=== PATIENT | male | born 1980 ===

== ENCOUNTER 2018-07-18 19:58 | Emergency (ER) | payer SELFPAY ==
[2018-07-18 20:12] VITALS: TEMP 98.8; BMI 18.3
[2018-07-18] MEDS ORDERED: Naproxen 550 mg Tab PO STA (20:50)
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
[2018-07-18 23:39] VITALS: RESP 16
[2018-07-19 00:57] VITALS: BP 127/74; PULSE 62; O2SAT 99
--- NOTE | 2018-07-19 09:55 | CT ---
Date of service: 07/18/2018 PROCEDURE: CT of the left wrist HISTORY: wrist fracture COMPARISON: TECHNIQUE: Radiation dose: Total exam DLP = 220 mGy-cm. This CT exam was performed using one or more of the following dose reduction techniques: Automated exposure control, adjustment of the mA and/or kV according to patient size, and/or use of iterative reconstruction technique. FINDINGS: There is a comminuted displaced intra-articular fracture of the distal radius. There also a displaced fracture through the base of the ulnar styloid. The carpal bones are intact. IMPRESSION: As above
--- NOTE | 2018-07-19 10:37 | RAD ---
PROCEDURE: Left Hand Radiographs. HISTORY: pain COMPARISON: None. TECHNIQUE: 3 views obtained. FINDINGS: BONES: Normal. No fracture. JOINTS: Normal. No osteoarthritic changes. SOFT TISSUES: Normal. OTHER FINDINGS: None. IMPRESSION: Comminuted fracture of the distal radius and fracture of the ulnar styloid. The hand is otherwise unremarkable
--- NOTE | 2018-07-19 10:38 | RAD ---
Date of service: 07/18/2018 PROCEDURE: Left Wrist Radiographs. HISTORY: pain COMPARISON: None. TECHNIQUE: 4 views obtained. FINDINGS: BONES: There is a comminuted displaced intra-articular fracture of the distal radius. There is a fracture through the base of the ulnar styloid. The carpal bones are intact JOINTS: Normal. No dislocation. SOFT TISSUES: Normal. OTHER FINDINGS: None. IMPRESSION: There is a comminuted displaced intra-articular fracture of the distal radius. There is a fracture through the base of the ulnar styloid. The carpal bones are intact
== END 2018-07-19 00:55 | disposition home or self-care (01) ==
LOC: ED 19:58
DX: S52.502A Unspecified fracture of the lower end of left radius, initial encounter for closed fracture (principal); V00.131A Fall from skateboard, initial encounter; Y93.51 Activity, roller skating (inline) and skateboarding

== ENCOUNTER 2018-08-10 13:37 | Day surgery (SDC) | payer OTHER ==
[2018-08-10] MEDS ORDERED: Bupivacaine 0.5% 50 ML IJ ONE (15:33)
[2018-08-10] MEDS ORDERED: Propofol 10 mg/ml Inj (20 ML) ONE (15:39)
[2018-08-10] MEDS ORDERED: Midazolam 2 MG/2 ML VIAL ONE (15:47)
[2018-08-10] MEDS ORDERED: Lidocaine 1% Inj (20ml) ONE (16:17)
[2018-08-10] MEDS ORDERED: Morphine 4 mg/ml ISec ONE (17:07)
--- NOTE | 2018-08-10 17:08 | PCM.SURG1 ---
Surgeon's Initial Post Op Note - Surgeon's Notes Surgeon: tello [employer] Specialist: sharyn Type of Anesthesia: General Endo Pre-Operative Diagnosis: distal radius fx Operative Findings: see dic Post-Operative Diagnosis: same Operation Performed: ORIF distal radius Specimen/Specimens Removed: none Estimated Blood Loss: EBL {In ML}: 0 Date of Surgery/Procedure: 08/10/18 Time of Surgery/Procedure: 17:00
[2018-08-10] MEDS ORDERED: HYDROmorphone 0.5 mg/0.5 ml ISec IVP PRN (17:29)
[2018-08-10] MEDS ORDERED: Lactated Ringer's 1,000 ML IV SCH (17:30)
[2018-08-10] MEDS ORDERED: Bupivacaine/Epi 0.25%-1:200,000 10 ml PF inj IJ ONE (17:35)
--- NOTE | 2018-08-10 17:50 | PCM.ANESB1 ---
Interscalene Block - Brachial Plexus Date of Procedure: 08/10/18 Anesthesiologist: Yoana Pre-Procedure Diagnosis: ORIF Left wrist Post-Procedure Diagnosis: ORIF Left wrist Procedure Performed: Interscalene Block of Brachial Plexus Left - Procedure Interscalene Block of Brachial Plexus: This procedure was explained to the patient that it is for post-operative pain management. Consent was obtained after a thorough discussion with the patient regarding the benefits and possible complications of local anesthetic block of the Brachial Plexus at the Interscalene area. The patient was brought to the Operating Room and standard monitors were applied. Time out was held with the circulating nurse to confirm the correct surgery and appropriate block. After applying Oxygen by nasal cannula and administering IV Sedation, the patient's head was gently rotated away from the operative shoulder and the anterior scalene groove was carefully palpated. The ultrasound transducer was then applied to the skin in the transverse plane and the brachial plexus was visualized lateral to the carotid artery and in between the anterior and middle scalene muscles. After identification,the anterior lateral portion of the neck was prepped with Betadine solution three times and Lidocaine 1% was injected subcutaneously for topical analgesia. At this point, a # 22 gauge Stimuplex 4 inches insulated needle was inserted into the supraclavicular fossa and directed in a caudal and midline direction. The needle was inserted lateral to the ultrasound transducer in-plane towards the brachial plexus in a [id number] direction. Needle advancement was performed carefully under direct ultrasound visualization. A. After repeated negative aspiration,__20 cc of__0.25%,___bupivicaine were injected. Under ultrasound guidance the local anesthetics were observed surrounding the roots of the brachial plexus. The needle was removed intact and sterile dressing was applied. The patient had stable vital signs, was conscious and in no apparent distress.
[2018-08-10 18:25] VITALS: PULSE 72; RESP 18; TEMP 97.6; O2SAT 100
[2018-08-10 20:01] VITALS: BP 132/76
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
--- NOTE | 2018-08-11 09:46 | RAD ---
Date of service: 08/10/2018 PROCEDURE: Left Wrist Radiographs. HISTORY: post op COMPARISON: None. TECHNIQUE: Three views obtained. FINDINGS: BONES: There has been internal fixation of the distal radial fracture. There is anatomic alignment. There is a displaced fracture of the ulnar styloid that is unchanged. A plaster cast is in place JOINTS: Normal. No dislocation. SOFT TISSUES: Normal. OTHER FINDINGS: None. IMPRESSION: There has been internal fixation of the distal radial fracture. There is anatomic alignment. There is a displaced fracture of the ulnar styloid that is unchanged. A plaster cast is in place
--- NOTE | 2018-08-11 09:51 | RAD ---
Date of service: 08/10/2018 PROCEDURE: Fluoroscopy over 1 hr HISTORY: FRACTURE LEFT WRIST COMPARISON: TECHNIQUE: Fluoroscopy was provided in the operating room. Two images were submitted. FINDINGS: There is a metal plate and screws in the distal radius. There is anatomic alignment. IMPRESSION: As above
== END 2018-08-10 20:00 | disposition home or self-care (01) ==
LOC: SDS 13:37
PROVIDERS: ATTEND Orthopaedic Surgery
DX: S52.562A Barton's fracture of left radius, initial encounter for closed fracture (principal); V00.131A Fall from skateboard, initial encounter; Y92.9 Unspecified place or not applicable
CPT/HCPCS: 25609; 64415; 73110; C1713 ×6; J0690; J1170; J1885; J2250; J2270; J2405; J2704; J3010; J7120 ×2